=== PATIENT | female | born 1950 | race Caucasian/White ===

== ENCOUNTER 2016-10-31 09:28 | Day surgery (SDC) | payer OTHER ==
[~2016-10-31] VITALS: Ht 152.4 cm; Wt 61.6 kg
[2016-10-31 10:08] VITALS: Ht 152.4 cm; Wt 61.6 kg
[2016-10-31] MEDS ORDERED: PROP10TA6 PO (10:20)
[2016-10-31] MEDS ORDERED: SERT50TA PO (10:20)
[2016-10-31] MEDS ORDERED: SYN1 PO (10:20)
[2016-10-31 10:40] VITALS: BP 130/74; PULSE 78; RESP 18
[2016-10-31] MEDS ORDERED: PROPOFOL 20 ML ONE (10:55)
[2016-10-31] MEDS ORDERED: FENTAnyl 50 MCG/ML VIAL ONE (10:56)
[2016-10-31] MEDS ORDERED: MIDAZOLAM 1 MG/ML 2 ML INJ ONE (10:56)
[2016-10-31 11:45] VITALS: BP 114/69; PULSE 72; RESP 16
--- NOTE | 2016-10-31 13:09 | GILP ---
DATE OF PROCEDURE: 10/31/2016 PROCEDURE PERFORMED: Colonoscopy with biopsy. INDICATION: A 66-year-old female undergoing this procedure for colon cancer screening. The risks o f the procedure, related and unrelated complications, anesthetic risks, alternatives discussed and i nformed consent was obtained. DESCRIPTION OF PROCEDURE: The patient was brought to the GI lab, sedated by Dr. Ramos. After opti mal sedation, digital examination done which was normal. A pediatric colonoscope passed with much e ase into rectum and advanced slowly all the way into cecum and finally into terminal ileum. Termina l ileum was normal up to 1 foot. Rest of the colon appeared normal. Retroversion done, internal he morrhoids identified. Scope was straightened out and removed with good patient tolerance. IMPRESSION: 1. Internal hemorrhoids. 2. Negative all the way into cecum. 3. Negative terminal ileum. 4. Clarity and cleanliness was good. PLAN: At this point, is to have a high-fiber diet. Dictated By: GISELLA PEARCE/BRUNA Conf#: [id number] DID#: [id number] CC: GISELLA BAHENA MD;*EndCC*
== END 2016-10-31 13:23 | disposition home or self-care (01) ==
LOC: GIL 09:28
PROVIDERS: ATTEND Internal Medicine Gastroenterology
DX: Z12.11 Encounter for screening for malignant neoplasm of colon (principal); K64.8 Other hemorrhoids; I10 Essential (primary) hypertension
CPT/HCPCS: 45378; J2250; J3010; Z7610